=== PATIENT | male | born 1955 | race Caucasian/White ===

== ENCOUNTER 2016-03-17 10:18 | Outpatient (CLI) | payer MEDICARE ==
[2016-03-17 11:36] LABS: eGFR (African) > 60; eGFR (Non-African) > 60
== END 2016-03-18 10:20 ==
LOC: LAB 10:18
PROVIDERS: ATTEND Internal Medicine Cardiovascular Disease
DX: I42.9 Cardiomyopathy, unspecified (principal); E78.5 Hyperlipidemia, unspecified; Z79.899 Other long term (current) drug therapy
CPT/HCPCS: 36415; 80053; 80061

== ENCOUNTER 2016-03-18 12:28 | Outpatient (CLI) | payer MEDICARE | END 2016-03-18 12:38 | LOC: CARD 12:28 | PROVIDERS: ATTEND Internal Medicine Cardiovascular Disease | DX: I25.10 Atherosclerotic heart disease of native coronary artery without angina pectoris (principal) | CPT/HCPCS: G0463 ==

== ENCOUNTER 2016-09-30 10:37 | Outpatient (CLI) | payer MEDICARE | END 2016-09-30 10:40 | LOC: CARD 10:37 | PROVIDERS: ATTEND Internal Medicine Cardiovascular Disease | DX: I25.5 Ischemic cardiomyopathy (principal); E78.5 Hyperlipidemia, unspecified; N52.9 Male erectile dysfunction, unspecified | CPT/HCPCS: G0463 ==

== ENCOUNTER 2016-12-16 13:20 | Outpatient (CLI) | payer MEDICARE ==
--- NOTE | 2016-12-16 15:47 | Diagnostic Imaging Report ---
SIL ANDREWS [facility] [id number] [facility].[address] [id number] Report Submission Date: Dec 16, 2016 1:46:29 PM CDT Patient Study Name: LIZBET LINDQUIST Date: Dec 16, 2016 1:30:15 PM CDT Modality Type: CR Gender: M Description: LOWER EXTREMITY : 57 Institution: [facility] Physician: SIL ANDREWS Examination: Plain film foot History: heel discomfort Findings: 3 views of the foot demonstrates scattered articular degenerative disease most pronounced involving the 1st metatarsophalangeal articulation. No fracture or dislocation. Inferior and posterior calcaneal spurs. Posterior ankle calcifications. No soft tissue swelling. No joint effusion. Impression: Scattered degenerative changes. Calcaneal spurs. If suspect plantar fasciitis or Achilles tendon abnormality, consider obtaining MRI. Electronically signed on Dec 16, 2016 1:46:29 PM CDT by: Juan F WESTON
== END 2016-12-16 13:30 ==
LOC: RAD 13:20
PROVIDERS: ATTEND Family Medicine
DX: M79.672 Pain in left foot (principal)
CPT/HCPCS: 73630

== ENCOUNTER 2017-04-22 15:31 | Outpatient (CLI) | payer OTHER ==
--- NOTE | 2017-04-22 19:15 | Diagnostic Imaging Report ---
SIL ANDREWS [facility] [id number] [facility] [address] 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 No fracture. No dislocation. No joint effusion. No soft tissue irregularity. Impression: Mild degenerative changes. No acute appearing osseous abnormality. Electronically signed on Apr 22, 2017 4:15:07 PM WATER TAXI FERRY OPERATOR by: Juan F WESTON
== END 2017-04-22 15:32 ==
LOC: RAD 15:31
PROVIDERS: ATTEND Family Medicine
DX: M25.562 Pain in left knee (principal)
CPT/HCPCS: 73562

== ENCOUNTER 2017-08-25 10:34 | Outpatient (CLI) | payer OTHER | END 2017-08-25 10:36 | LOC: CARD 10:34 | PROVIDERS: ATTEND Internal Medicine Cardiovascular Disease | DX: I42.9 Cardiomyopathy, unspecified (principal); E78.5 Hyperlipidemia, unspecified; Z79.899 Other long term (current) drug therapy; R73.02 Impaired glucose tolerance (oral) | CPT/HCPCS: 36415; 80061; 82550; G0463 ==

== ENCOUNTER 2018-01-13 15:00 | Outpatient (CLI) | payer OTHER ==
[2018-01-13 16:10] LABS: eGFR (Non-African) > 60
== END 2018-01-13 15:02 ==
LOC: LAB 15:00
PROVIDERS: ATTEND Family Medicine
DX: M12.89 Other specific arthropathies, not elsewhere classified, multiple sites (principal); Z82.61 Family history of arthritis; Z79.1 Long term (current) use of non-steroidal anti-inflammatories (NSAID)
CPT/HCPCS: 36415; 80053; 85651; 86140; 86200; 86431